=== PATIENT | female | born 1980 | race Caucasian/White ===

== ENCOUNTER 2018-10-18 23:10 | Emergency (ER) | payer OTHER ==
[2018-10-18 23:24] VITALS: RESP 18
--- NOTE | 2018-10-19 02:50 | XR ---
EXAM: XR Chest, 2 Views CLINICAL HISTORY: ITS.REASON XR Reason: Pain TECHNIQUE: Frontal and lateral views of the chest. COMPARISON: No relevant prior studies available. FINDINGS: Lungs: There is diffuse interstitial prominence suggested of uncertain chronicity. No focal consolidation. Pleural space: No pleural effusion. No pneumothorax. Heart: Unremarkable. No cardiomegaly. Mediastinum: Unremarkable. Bones/joints: Unremarkable. IMPRESSION: There is diffuse interstitial prominence suggested of uncertain chronicity. This may represent chronic interstitial changes or mild pulmonary vascular congestion. Please correlate clinically. No focal consolidation. No large pleural effusion or pneumothorax.
[2018-10-19] MEDS ORDERED: AMOXIC-POT CLAV 875-125MG 1 EACH TAB PO STA (03:03)
[2018-10-19] MEDS ORDERED: AMOXIC-POT CLAV 875MG STARTER 2 EACH TABLET PO STA (03:03)
[2018-10-19] MEDS ORDERED: IPRATROPIUM-ALBUTEROL 3 ML NEB INHALATION STA (03:03)
[2018-10-19] MEDS ORDERED: ACETAMINOPHEN TAB 325 MG TAB PO STA (03:20)
[2018-10-19 03:39] VITALS: BP 117/62; PULSE 89; TEMP 99.1
--- NOTE | 2018-10-19 03:40 | ED ---
General Adult HPI - General Source: patient, RN notes reviewed, old records reviewed Mode of arrival: ambulatory Limitations: no limitations <Jayy Diggs - Last Filed: 10/20/18 05:29> <Sakshi Narayanan - Last Filed: 10/20/18 21:24> - General Chief complaint: ENT Stated complaint: Fever,facial swelling Time Seen by Provider: 10/19/18 01:53 - History of Present Illness Initial comments: 38-year-old female patient presents to ED with 2 days of nonproductive cough, sinus pressure, congestion. Patient force that she has recently treated for a dental abscess amoxicillin. Patient denies any other complaints this time. Denies a chest pain shortness of abdominal pain, nausea vomiting diarrhea. Patient states that she cannot be . Systemic: Pt denies fatigue, fever/chills, rash. Pt denies weakness, night sweats, weight loss. Neuro: Pt denies headache, visual disturbances, syncope or pre-syncope. HEENT: Pt denies ocular discharge or irritation, otalgia, rhinorrhea, pharyngitis or notable lymphadenopathy. Cardiopulmonary: Pt denies chest pain, SOB, heart palpitations, dyspnea on exertion. Abdominal/GI: Pt denies abdominal pain, n/v/d. : Pt denies dysuria, burning w/ urination, frequency/urgency. Denies new onset urinary or bowel incontinence. MSK: Pt denies myalgia, loss of strength or function in extremities. Neuro: Pt denies new onset weakness, paresthesias. (Jayy Diggs) - Related Data Previous Rx's Medication Instructions Recorded Albuterol Inhaler [Ventolin Hfa 1 - 2 puff INHALATION Q4-6H PRN #1 10/19/18 Inhaler] inhaler Azithromycin [Zithromax Z-pack] 0 mg PO DIRECTED #6 tab 10/19/18 predniSONE 50 mg PO DAILY #5 tab 10/19/18 Allergies Allergy/AdvReac Type Severity Reaction Status Date / Time No Known Allergies Allergy Verified 10/18/18 23:24 Review of Systems ROS Other: All systems not noted in ROS Statement are negative. <Jayy Diggs - Last Filed: 10/20/18 05:29> ROS Other: All systems not noted in ROS Statement are negative. <Sakshi Narayanan - Last Filed: 10/20/18 21:24> ROS Statement: Those systems with pertinent positive or pertinent negative responses have been documented in the HPI. Past Medical History Past Medical History: No Reported History History of Any Multi-Drug Resistant Organisms: None Reported Past Surgical History: Section Past Psychological History: No Psychological Hx Reported Smoking Status: Current every day smoker Past Alcohol Use History: None Reported Past Drug Use History: None Reported <Jayy Diggs - Last Filed: 10/20/18 05:29> General Exam Limitations: no limitations <Jayy Diggs - Last Filed: 10/20/18 05:29> - General Exam Comments Initial Comments: Constitutional: NAD, AOX3, Pt has pleasant affect. HEENT: NC/AT, trachea midline, neck supple, no lymphadenopathy. Posterior pharynx non erythematous, without exudates. External ears appear normal, without discharge. Mucous membranes moist. Eyes PERRLA, EOM intact. There is no scleral icterus. No pallor noted. Dental exam revealed poor dentition, no erythema, no abscess. Cardiopulmonary: RRR, no murmurs, rubs or gallops, no JVD noted. Mild wheezing noted on initial exam, lungs clear to auscultation after breathing treatment.. No peripheral edema. Abdominal exam: Abdomen soft and non-distended. Abdomen non-tender to palpation in all 4 quadrants. Bowel sounds active in LLQ. No hepatosplenomegaly. No ecchymosis Neuro: CN II-XII grossly intact. No nuchal rigidity. No raccon eyes, no gonsalez sign, no hemotympanum. No cervical spinal tenderness. MSK: No posterior calf tenderness bilaterally, homans sign negative bilaterally. Posterior tibialis and radial pulse +2 bilaterally. Sensation intact in upper and lower extremities. Full active ROM in upper and lower extremities, 5/5 stregnth. (Jayy Diggs) Course Vital Signs 10/18/18 10/19/18 10/19/18 23:19 03:27 03:35 Temperature 99.8 F H Pulse Rate 85 85 85 Respiratory 18 Rate Blood Pressure 105/61 O2 Sat by Pulse 93 L Oximetry 10/19/18 03:38 Temperature 99.1 F Pulse Rate 89 Respiratory 18 Rate Blood Pressure 117/62 O2 Sat by Pulse 96 Oximetry Medical Decision Making <Jayy Diggs - Last Filed: 10/20/18 05:29> <Sakshi Narayanan - Last Filed: 10/20/18 21:24> - Medical Decision Making 38-year-old female patient presents to ED with 2 days of nonproductive cough, sinus pressure, congestion. Patient force that she has recently treated for a dental abscess amoxicillin. Patient denies any other complaints this time. Denies a chest pain shortness of abdominal pain, nausea vomiting diarrhea. Patient states that she cannot be . Pt VSS, afebrile. Physical exam displayed: Mild wheezing noted on initial exam, lungs clear to auscultation after breathing treatment. Chest x-ray revealed chronic interstitial changes. Prescribed negative. Patient will be treated with bronchitis and discharged. Prescribed prednisone, albuterol inhaler, azithromycin Z-Arslan. Facial follow up with primary care right 1-2 days. Patient should irritation or symptoms. Case discussed with Dr. Narayanan. (Jayy Diggs) I was available for consultation in the emergency department. The history and physical exam were done by the midlevel provider. I was consulted for this patient's care. I reviewed the case with the midlevel provider and based on their presentation of the patient, I agree with the assessment, medical decision making and plan of care as documented. Chart was dictated using [employer] dictation software. Attempts were made to correct any dictation errors however some typographical errors may persist. (Sakshi Narayanan) - Lab Data Lab Results 10/19/18 Range/Units 02:37 Group A Strep Rapid Negative (Negative) Disposition Is patient prescribed a controlled substance at d/c from ED?: No <Jayy Diggs - Last Filed: 10/20/18 05:29> <Sakshi Narayanan - Last Filed: 10/20/18 21:24> Clinical Impression: Bronchitis Disposition: HOME SELF-CARE Condition: Stable Instructions (If sedation given, give patient instructions): Acute Bronchitis (ED) Additional Instructions: Patient to adhere to previously discussed treatment plan and will take medication(s) as directed. Patient to follow up with PCP in 1-2 days. Patient to return to ED if symptoms do not improve. Take medications as directed. Follow with primary care provider in 1-2 days. Return to ER if condition worsens. Prescriptions: predniSONE 50 mg PO DAILY #5 tab Albuterol Inhaler [Ventolin Hfa Inhaler] 1 - 2 puff INHALATION Q4-6H PRN #1 inhaler PRN Reason: Cough Azithromycin [Zithromax Z-pack] 0 mg PO DIRECTED #6 tab Referrals: None,Stated [Primary Care Provider] - 1-2 days
== END 2018-10-19 03:57 | disposition home or self-care (01) ==
LOC: EC 23:10
DX: J40 Bronchitis, not specified as acute or chronic (principal); R91.8 Other nonspecific abnormal finding of lung field; F17.200 Nicotine dependence, unspecified, uncomplicated
CPT/HCPCS: 71046; 87081; 87430; 94640; 99284